=== PATIENT | female | born 1980 | race Caucasian/White ===

== ENCOUNTER 2021-11-25 01:34 | Emergency (ER) | payer MEDICAID, SELFPAY ==
[2021-11-25 01:35] VITALS: BP 142/90; PULSE 142; RESP 18; TEMP 37.3; O2SAT 97; BMI 28.3
--- NOTE | 2021-11-25 02:00 | HMH.EDGENADL ---
ED Disposition Clinical Impression: Stimulant abuse Stimulant intoxication Qualifiers: Complication of substance-induced condition: with perceptual disturbance Qualified Code(s): F15.922 - Other stimulant use, unspecified with intoxication with perceptual disturbance Disposition: Home, Self-Care Condition on Discharge: Good Instructions: Anxiety Disorders Additional Instructions: Please return to ED with any new or worsening symptoms, please consider rehabilitation Referrals: Provider,Referral, [Primary Care Provider] - - Critical Care Critical Care Time: No Attestation: On 11/25/21, the high probability of a clinically significant, sudden or life threatening deterioration of the following system(s) required my full and direct attention, intervention and personal management. The time I documented below is in addition to time spent performing reported procedures but includes the following listed in this critical care notation. Medical Decision Making - Medical Records Medical records reviewed: Yes: I reviewed the patient's medical records. - Lenny Inquiry Pt receiving controlled substance: No Vital Signs: 11/25/21 01:35 11/25/21 05:23 Temperature 99.1 F Temperature Source Oral Pulse Rate [Left Radial] 142 H Respiratory Rate 18 Blood Pressure [Right Arm] 142/90 H Blood Pressure Mean [Right Arm] 107 02 Sat by Pulse Oximetry 97 Oxygen Delivery Method Room Air Room Air - Lab Data Lab Results 11/25/21 03:12: Urine HCG, Qual Negative 11/25/21 03:12: Urine Opiates Screen Negative, Urine Methadone Screen Negative, Ur Barbituates Screen Negative, Ur Phencyclidine Scrn Negative, Ur Amphetamines Screen Positive H, U Benzodiazepines Scrn Negative, Urine Cocaine Screen Negative, U Marijuana (THC) Screen Negative Orders (Tests/Meds): ED MEDICATIONS Discontinued Medications Generic Name Dose Route Start Last Admin Trade Name Krishq PRN Reason Stop Dose Admin Haloperidol Lactate 5 mg 11/25/21 03:40 11/25/21 03:43 Haloperidol Lactate 5 Mg/Ml Vial IM 11/25/21 03:41 5 mg ONCE ONE Administration Midazolam HCl 5 mg 11/25/21 01:54 11/25/21 02:05 Midazolam 2mg/2ml Vial IM 11/25/21 01:55 Not Given ONCE ONE Midazolam HCl 2.5 mg 11/25/21 02:04 11/25/21 02:06 Midazolam Hcl 1mg/1ml 5ml Vial IM 11/25/21 02:05 2.5 mg ONCE ONE Administration Midazolam HCl 2.5 mg 11/25/21 02:46 11/25/21 02:48 Midazolam 5mg/Ml 1ml Vial IM 11/25/21 02:47 2.5 mg ONCE ONE Administration Medical Decision Narrative: Patient is a 41-year-old female presents the ED today with acute intoxication. Patient is overall well-appearing on initial evaluation no acute distress stable vital signs. Patient with acute intoxication with stimulant, mildly hypertensive, somewhat tachycardic, although not hypoxic. Will order urine study, and administer IM Versed to calm patient agitation. Patient will be continually monitored and observed while in the emergency department, will assess for clinical sobriety prior to discharge, and assess medical complaints at that time. Further history with patient's family: Patient has been consuming meth consecutively for the last couple of days, patient's is at home, will be able to take her back today, patient daughter will stay with her while in the emergency department today, we administered 5 total milligrams of IV Versed, however patient was still anxious, pacing the room, tachycardic, we administered 5 mg of IM Haldol, which is allow patient to rest, we will continually reassess when patient awakes and is overall able to be discharged. After approximately 4 hours length of stay in the emergency department, patient is improved, was able to sleep for about 2 hours with the haloperidol, on reassessment is awake alert much more clinically sober. Patient is not endorsing suicidal ideation, and never has throughout our observation. Other than in triage,
--- NOTE | 2021-11-25 02:20 | PC.NURSE ---
PT ALERT AND ORIENTED X 3. PT GIVEN SNACK. FAMILY AT BEDSIDE. NO ACUTE DISTRESS NOTED.
--- NOTE | 2021-11-25 02:32 | PC.NURSE ---
RESOURCES FOR AVAILABLE REHABS AND DETOXES GIVEN TO PATIENT AND FAMILY. PT DENIES INTEREST IN REHAB AT THIS TIME. PT DENIES SI/HI AT THIS TIME.
[2021-11-25 03:25] LABS: Urine Pregnancy, HCG Qual. Negative (Negative)
[2021-11-25 03:35] LABS: Barbiturates Screen,Urine Negative ng/ml (<200)
[2021-11-25 03:36] LABS: Benzodiazepines Screen,Urine Negative ng/ml (<200)
[2021-11-25 03:37] LABS: Cannabinoid Screen,Urine Negative ng/ml (<50); Cocaine Screen,Urine Negative ng/ml (<300)
[2021-11-25 03:38] LABS: Methadone Screen,Urine Negative ng/ml (<300)
[2021-11-25 03:39] LABS: Opiate Screen,Urine Negative ng/ml (<300); Phencyclidine Screen,Urine Negative ng/ml (<25)
[2021-11-25 03:41] LABS: Amphetamine/Metha Screen,Urine Positive ng/ml (<1000)
[2021-11-25 05:29] VITALS: BP 136/74; PULSE 102; RESP 20; TEMP 36.6; O2SAT 99
== END 2021-11-25 05:30 | disposition home or self-care (01) ==
PROVIDERS: Emergency Provider Student in an Organized Health Care Education/Training Program
DX: F15.922 Other stimulant use, unspecified with intoxication with perceptual disturbance (principal)
CPT/HCPCS: 80305; 81025; 96372; 99282